=== PATIENT | female | born 1970 | race African-American/Black ===

== ENCOUNTER 2016-11-10 10:53 | Emergency (ER) | payer OTHER ==
[2016-11-10 11:05] VITALS: TEMP 97.9; BMI 45.4
--- NOTE | 2016-11-10 11:05 | PDOC ---
History of Present Illness - General Chief Complaint: Pain, Acute Stated Complaint: ABDOMINAL PAIN Time Seen by Provider: 11/10/16 11:01 - History of Present Illness Initial Comments: 11/10/16 11:46 Chief complaint: Abdominal pain History of present illness: Epigastric and right upper quadrant pain since Wednesday after eating a fatty meal. Accompanying nausea, watery diarrhea, 5 episodes this morning, no blood. No vomiting. No solid food but taking by mouth fluids. Review of systems: No fever/chills, headache, URI symptoms, sore throat, cough, chest pain, shortness of breath, back pain, vaginal bleeding or discharge, urinary tract symptoms including dysuria, frequency, urgency, hesitancy, or hematuria. No melena or bloody stool. No hematemesis. Past medical history: Similar episode of upper quadrant pain in the past, thought to be secondary to her gallbladder, resolved spontaneously, no surgery at that time. Hysterectomy. Systemic lupus erythematosus involving primarily joint symptoms. No prior cardiac lung or [employer] involvement. Maintained disease- free on Plaquinil at present. No other abdominal surgery. Hypertension but no diabetes or elevated cholesterol. History of elevated LFTs but without definite etiology. Uncertain what type of testing has been performed. 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 No pallor or icterus. PERRLA, fundi benign, ENT clear Neck supple without bruit mass or nodes Lungs clear with full breath sounds throughout bilaterally CV S1 and S2 normal without murmur rub or gallop pulses full and symmetric no JVD or edema 86 and regular Abdomen nondistended. Bowel sounds normal. Soft without mass or organomegaly. There is mild tenderness to deep palpation in the epigastrium and right upper quadrant without guarding or rebound. Pang sign is negative. No CVAT Extremities no CCE right inflammation or swelling Skin clear, no rash, adequate turgor and what mucous membranes Neurological intact. Gait stable and unimpaired. Impression: Biliary colic, possible cholecystitis, mild, nontoxic. Other possibilities acute gastroenteritis, gastritis or early peptic ulcer disease Plan: Labs, gallbladder ultrasound, symptomatic treatment and further evaluation depending on lab values. Past History - Past Medical History Allergies/Adverse Reactions: Allergies Allergy/AdvReac Type Severity Reaction Status Date / Time No Known Allergies Allergy Verified 11/10/16 10:55 Home Medications: Ambulatory Orders Hydroxychloroquine So4 [Plaquenil -] 200 mg PO BID 08/10/12 Amlodipine Besylate [Norvasc -] 5 mg PO DAILY 06/19/14 Hydrochlorothiazide [Hctz -] 25 mg PO DAILY 06/19/14 Pantoprazole Sodium [Protonix] 40 mg PO DAILY #6 tablet. 11/10/16 HTN: Yes - Surgical History Abdominal Surgery: Yes (GASTRIC BYPASS, HYSTERECTOMY) - Immunization History Td Vaccination: No - Psycho/Social/Smoking Cessation Hx Anxiety: No Suicidal Ideation: No Smoking Status: No Smoking History: Never smoked Number of Cigarettes Smoked Daily: 0 Hx Alcohol Use: Yes (SOCIAL) Drug/Substance Use Hx: No Substance Use Type: None ED Treatment Course - LABORATORY CBC & Chemistry Diagram: 11/10/16 11:27 11/10/16 11:05 Medical Decision Making - Medical Decision Making 11/12/16 07:32 Ultrasound negative. Gallbladder normal Labs within normal limits except for very slight elevation of LFTs. Of which the patient is aware and being followed by her primary physician Most likely diagnosis is viral gastroenteritis. Symptomatic treatment and follow -up as necessary. Fully ambulatory and in no distress upon discharge to follow up as directed. Short course of proton pump inhibitor prescribed for symptomatic relief. *DC/Admit/Observation/Transfer Diagnosis at time of Disposition: Viral gastroenteritis - Discharge Dispostion Disposition: HOME Condition at time of disposition: Stable Admit: No - Prescriptions Prescriptions: Pantoprazole Sodium [Protonix] 40 mg PO DAILY #6 tablet. - Referrals Referrals: Jatin Goel MD [Staff Physician] - - Patient Instructions Printed Discharge Instructions: DI for Viral Gastroenteritis -- Adult Additional Instructions: Return to the ER if your pain is worse or if there is a large amount of vomiting and you are unable to hold down fluids or food. Otherwise follow-up with your primary physician in 2 or 3 days - Post Discharge Activity Work/School Note: Back to Work
[2016-11-10 11:27] LABS: PH,URINE 6.5 (4.5-8); URINE APPEARANCE Cloudy; URINE BILIRUBIN 2+ (NEGATIVE); URINE BLOOD Negative (NEGATIVE); URINE GLUCOSE (UA) Negative (NEGATIVE); URINE KETONE 2+ (NEGATIVE); URINE LEUK ESTERASE Negative (NEGATIVE); URINE NITRITE Negative (NEGATIVE); URINE UROBILINOGEN 1.0 E.U/dl (0.2-1.0)
[2016-11-10 11:28] LABS: URINE COLOR YELLOW; URINE PROTEIN 1+ (NEGATIVE)
[2016-11-10 11:31] LABS: BASOPHIL 3.3 % (0-2.0); MCH 29.9 pg (25.7-33.7); MEAN PLT VOLUME 8.5 fl (7.5-11.1); NEUTROPHILS 52.2 % (42.8-82.8); PLATELET COUNT 229 K/MM3 (134-434); RDW 15.1 % (11.6-15.6); WHITE BLOOD COUNT 6.3 K/mm3 (4.0-10.8)
[2016-11-10 11:54] LABS: URINE BACTERIA FEW /hpf (NEGATIVE); URINE WBC 0-3 (3-5)
[2016-11-10 11:58] LABS: ALK PHOS 112 U/L (32-92); ANION GAP 13 (8-16); BILIRUBIN,TOTAL 2.4 mg/dl (0.2-1.0); CALCIUM 9.6 mg/dl (8.4-10.2); CO2 24 mmol/L (22-28); CREATININE 0.8 mg/dl (0.6-1.3); GLUCOSE,RANDOM 95 mg/dl (74-106); SGOT/AST 79 U/L (10-42); SGPT/ALT 59 U/L (10-40); TOT PROT 7.8 g/dl (6.4-8.3)
[2016-11-10] MEDS ORDERED: PANTOPRAZOLE 40 MG TABLET (FP) PO ONE (13:48)
[2016-11-10] MEDS ORDERED: PANTOPRAZOLE 40 MG TABLET (FP) ONE (13:58)
[2016-11-10 13:59] VITALS: BP 135/89; PULSE 88
== END 2016-11-10 14:05 | disposition home or self-care (01) ==
LOC: FER 10:53
DX: I10 Essential (primary) hypertension (principal); A08.4 Viral intestinal infection, unspecified; B97.89 Other viral agents as the cause of diseases classified elsewhere
CPT/HCPCS: 36415; 76705-TC; 80053; 81003; 81015; 84703; 85025; 99283-25

== ENCOUNTER 2018-10-03 09:05 | Day surgery (SDC) | payer BC ==
[2018-09-30 16:36] VITALS: BMI 48.0
[2018-10-03 09:27] LABS: BASO % 1.5 % (0-2.0); EOS % 0.9 % (0-4.5); HEMATOCRIT 43.3 % (32.4-45.2); HEMOGLOBIN 14.7 GM/dL (10.7-15.3); LYMPH % 36.6 % (8-40); MCH 30.8 pg (25.7-33.7); MEAN CELL VOLUME 90.6 fl (80-96); MEAN PLT VOLUME 8.2 fl (7.5-11.1); MONO % 9.8 % (3.8-10.2); NEUT % 51.2 % (42.8-82.8); PLATELET COUNT 237 K/MM3 (134-434); RBC 4.78 M/mm3 (3.60-5.2); WHITE BLOOD COUNT 5.5 K/mm3 (4.0-10.0)
[2018-10-03 09:46] LABS: INR 1.02 (0.83-1.09)
[2018-10-03] MEDS ORDERED: MIDAZOLAM HCL 2 MG/2 ML SINGLE DOSE VIAL ONE (11:10)
[2018-10-03 16:35] VITALS: BP 107/77; PULSE 80; TEMP 98.2
--- NOTE | 2018-10-06 16:56 | PATH ---
Surgical Pathology Report Patient Name: CLAUDIO MCNAIR [facility]. Rec. #: [id number] /Age/Gender: 1970 (Age: 48) / F Account: [id number] Location: RADIOLOGY INTER Taken: 10/03/2018 Received: 10/03/2018 Reported: 10/06/2018 Physicians: Jacoby Conti M.D. Specimen(s) Received LIVER BIOPSY Clinical History 48-year-old female with abnormal LFTs, questioning autoimmune hepatitis Final Diagnosis LIVER, CORE BIOPSY: PATCHY STEATOSIS (10-15%), CONSISTENT WITH FATTY LIVER DISEASE. TRICHROME STAIN SHOWS NO SIGNIFICANT FIBROSIS. RETICULIN STAIN SHOWS AN INTACT SINUSOIDAL ARCHITECTURE. IRON STAIN IS NEGATIVE FOR SIDEROSIS. PAS AND PAS WITH DIASTASE STAINS ARE NEGATIVE FOR [id number] GLOBULES. NEGATIVE FOR CHRONIC HEPATITIS, CHOLESTASIS, CHOLANGITIS/BILE DUCT INJURY, GRANULOMAS, OR MALIGNANCY. Case sent for consultation to Dr. Kellee Dias from [place], [place], the diagnosis above reflects her opinion. Electronically Signed Deven Fritz M.D. Gross Description Received in formalin labeled "liver tissue," are 4 weaver, cylindrical portions of soft tissue ranging from 0.5-1.7 cm in length and averaging 0.1 cm diameter. The specimens are submitted in toto in one cassette. 10/03/201810/03/2018
== END 2018-10-03 16:40 | disposition home or self-care (01) ==
LOC: JRADIR 09:05
PROVIDERS: ATTEND Internal Medicine Gastroenterology
PROC: 0FB00ZX Excision of Liver, Open Approach, Diagnostic (ICD-10-PCS; principal; 2018-10-03)
DX: K76.0 Fatty (change of) liver, not elsewhere classified (principal)
CPT/HCPCS: 36415; 76942-TC; 85025; 85610; 87899; 88305-TC; 88313-TC